=== PATIENT | female | born 1950 | race Caucasian/White ===

== ENCOUNTER → 2023-09-22 12:50 | Outpatient (REF) | payer MEDICARE, OTHER, SELFPAY | LOC: HWRAD 12:50 | PROVIDERS: ATTENDING PHYSICIAN Nurse Practitioner Adult Health | DX: Z78.0 Asymptomatic menopausal state (principal) | CPT/HCPCS: 77080 ==

== ENCOUNTER 2023-10-21 06:12 | Day surgery (SDC) | payer MEDICARE, OTHER, SELFPAY ==
[2023-10-21 10:52] VITALS: BP 135/83; BMI 31.1
[2023-10-21 11:11] VITALS: BMI 31.1
[2023-10-21 13:08] VITALS: BP 112/72
[2023-10-21 13:10] VITALS: BP 112/72
[2023-10-21 13:16] VITALS: BP 90/52
[2023-10-21 13:30] VITALS: BP 102/71
[2023-10-21 13:40] VITALS: BP 117/69
== END 2023-10-21 14:00 | disposition home or self-care (01) ==
LOC: GI 06:12
PROVIDERS: ATTENDING PHYSICIAN Internal Medicine Gastroenterology
DX: D12.3 Benign neoplasm of transverse colon (principal); D12.4 Benign neoplasm of descending colon; K64.0 First degree hemorrhoids
CPT/HCPCS: 45390; 45385; 88305

== ENCOUNTER → 2023-10-27 15:11 | Outpatient (REF) | payer MEDICARE, OTHER, SELFPAY | LOC: HWRAD 15:11 | PROVIDERS: ATTENDING PHYSICIAN Nurse Practitioner Adult Health | DX: M79.671 Pain in right foot (principal) | CPT/HCPCS: 73630 ==

== ENCOUNTER 2024-09-13 06:22 | Day surgery (SDC) | payer MEDICARE, OTHER, SELFPAY | END 2024-09-13 15:28 | disposition home or self-care (01) | LOC: GI 06:22 | PROVIDERS: ATTENDING PHYSICIAN Internal Medicine Gastroenterology; FAMILY PHYSICIAN Nurse Practitioner Adult Health | DX: Z12.11 Encounter for screening for malignant neoplasm of colon (principal); D12.3 Benign neoplasm of transverse colon; K63.5 Polyp of colon; K63.89 Other specified diseases of intestine; Q43.8 Other specified congenital malformations of intestine; K62.1 Rectal polyp; Z98.890 Other specified postprocedural states | CPT/HCPCS: 45385; 45380; 88305 ==

== ENCOUNTER → 2025-01-16 11:05 | Outpatient (REF) | payer MEDICARE, OTHER, SELFPAY | LOC: HWWDC 11:05 | PROVIDERS: ATTENDING PHYSICIAN Nurse Practitioner Adult Health | DX: Z12.31 Encounter for screening mammogram for malignant neoplasm of breast (principal) | CPT/HCPCS: 77063; 77067 ==

== ENCOUNTER 2025-03-13 06:08 | Day surgery (SDC) | payer MEDICARE, OTHER, SELFPAY ==
[2025-03-13 07:35] VITALS: BMI 31.9
[2025-03-13 07:36] VITALS: BMI 31.9
[2025-03-13 07:40] VITALS: BP 132/63
[2025-03-13 09:41] VITALS: BP 103/60
[2025-03-13 09:45] VITALS: BP 113/95
[2025-03-13 10:00] VITALS: BP 130/99
[2025-03-13 10:15] VITALS: BP 149/71
== END 2025-03-13 10:39 | disposition home or self-care (01) ==
LOC: SDS 06:08
PROVIDERS: ATTENDING PHYSICIAN Internal Medicine Gastroenterology
DX: D12.2 Benign neoplasm of ascending colon (principal); K63.89 Other specified diseases of intestine; K64.0 First degree hemorrhoids; T18.4XXA Foreign body in colon, initial encounter; Y93.89 Activity, other specified; Z86.0101 Personal history of adenomatous and serrated colon polyps; Z98.890 Other specified postprocedural states
CPT/HCPCS: 45385; 45388; 88305; C1726